=== PATIENT | male | born 1980 | race Caucasian/White ===

== ENCOUNTER 2019-10-24 08:01 | Emergency (ER) | payer SELFPAY ==
[~2019-10-24] VITALS: Ht 182.9 cm; Wt 66.3 kg
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
[2019-10-24 08:30] LABS: BASOPHILS % (AUTO) 1.1 % (0.0-2.0); EOSINOPHILS % (AUTO) 1.9 % (0.0-6.0); HEMATOCRIT 38 % (39-51); HEMOGLOBIN 13.5 g/dL (13.5-17.5); LYMPHOCYTES # (AUTO) 1.4 /CMM (0.8-4.8); LYMPHOCYTES % (AUTO) 35.7 % (20.0-44.0); MEAN CORPUSCULAR HGB CONC 35 g/dl (31.0-36.0); MEAN CORPUSCULAR VOLUME 90 fL (80-96); MONOCYTES # (AUTO) 0.3 /CMM (0.1-1.30); MONOCYTES % (AUTO) 7.6 % (2.0-12.0); NEUTROPHILS # (AUTO) 2.1 /CMM (1.8-8.9); NEUTROPHILS % (AUTO) 53.7 % (43.0-81.0); PLATELET COUNT (AUTO) 190 /CMM (150-450); RED BLOOD CELL COUNT(AUTO) 4.28 MIL/uL (4.5-6.0); WHITE BLOOD COUNT (AUTO) 3.9 K/uL (4.3-11.0)
[2019-10-24] MEDS ORDERED: IV NS 0.9% 1,000 ML BAG IV ONE (08:30)
--- NOTE | 2019-10-24 08:40 | NUR ---
PER CAMILA EUCEDA TO INSERT INDWELLING CATHETER RAUSCH CATHETER INSERTED FR16, TOLERATED PROCEDURE WELL. URINE SENT TO LAB. URINE OUTPUT 300CC AT THIS TIME.
[2019-10-24 08:43] LABS: CALCIUM, SERUM 7.8 mg/dL (8.5-10.1); CARBON DIOXIDE 29 mmol/L (21-32); CHLORIDE 106 mmol/L (98-107); CREATININE 0.9 mg/dL (0.6-1.3); GLUCOSE 73 mg/dL (74-106); POTASSIUM 3.1 mmol/L (3.5-5.1); SODIUM SERUM 141 mmol/L (136-145); UREA NITROGEN, BLOOD 18 mg/dL (7-18)
[2019-10-24 08:47] LABS: ACETAMINOPHEN 1 ug/ml (10-30); ALANINE AMINOTRANSFERASE 24 U/L (12-78); ALBUMIN 3.6 g/dL (3.4-5.0); ALKALINE PHOSPHATASE 44 U/L (46-116); ASPARTATE AMINOTRANSFERASE 15 U/L (15-37); BILIRUBIN,DIRECT 0.1 mg/dL (0.0-0.2); BILIRUBIN,TOTAL 0.4 mg/dL (0.2-1.0); TOTAL PROTEIN, SERUM 5.9 g/dL (6.4-8.2)
[2019-10-24 08:49] LABS: ALCOHOL, BLOOD < 3 mg/dL (0-0); SALICYLATE < 0.2 mg/dL (2.8-20.0)
--- NOTE | 2019-10-24 09:00 | NUR ---
PATIENT ASLEEP, AROUSABLE TO STIMULI. NO DISTRESS NOTED. WILL CONTINUE TO MONITOR.
[2019-10-24 09:10] LABS: SERUM AMMONIA 24 umol/L (11-32)
--- NOTE | 2019-10-24 10:35 | NUR ---
Patient is resting comfortably in bed with eyes closed. Easily aroused. VSS
--- NOTE | 2019-10-24 12:10 | NUR ---
PATIENT ASLEEP, NO DISTRESS NOTED, VITALS STABLE.
--- NOTE | 2019-10-24 18:02 | NUR ---
PATIENT AWAKE, ALERT AND ORIENTEDX4, BREATHING EVEN AND UNLABORED, NO SOB NOTED. PATIENT GAVE HIS HOME ADDRESS [id number] [place] [address]. Ambulatory with steady gait. Cooper catheter removed with a total of 2000ML urine output. IV removed. Catheter intact and site benign. Pressure and 4x4 applied to site. No bleeding noted. Patient discharged to home in stable condition. Written and verbal after care instructions given. Patient verbalizes understanding of instruction.
[2019-10-24 18:05] VITALS: BP 113/74
== END 2019-10-24 18:06 | disposition home or self-care (01) ==
LOC: ER 08:03
DX: G92 Toxic encephalopathy (principal); F15.10 Other stimulant abuse, uncomplicated; R41.82 Altered mental status, unspecified
CPT/HCPCS: 36415; 70450; 71045; 80048; 80076; 80305; 80307; 80329; 82140; 82962; 85025; 85730; 93005; 96360; 99291; G0480; J7030